=== PATIENT | male | born 1950 | race Caucasian/White ===

== ENCOUNTER 2022-06-25 10:13 | Emergency (ER) | payer MEDICARE, BC, SELFPAY ==
[2022-06-25 10:35] VITALS: BP 141/85; PULSE 80; RESP 19; TEMP 36.9; O2SAT 98; BMI 34.7
--- NOTE | 2022-06-25 11:18 | EXP.UTC ---
Discharge Plan Disposition Patient Disposition: Home, Self-Care Condition: Good Prescriptions Prescriptions: New amoxicillin-pot clavulanate 875-125 mg Tablet 1 tab PO Q12H 7 Days Qty: 14 0RF prednisone 10 mg tablet 10 mg PO BID 5 Days Qty: 10 0RF benzonatate 100 mg capsule 100 mg PO TID PRN (Reason: cough) Qty: 30 0RF Referrals Follow up/Referrals: Provider,Referral, MD [Primary Care Provider] - See instructions Activity Restrictions/Add. Instructions Additional Instructions/Restrictions: Start antibiotic today. Be sure to complete entire prescription even if feeling better Monitor temp. Tylenol every 4 hours as needed and / or ibuprofen every 6 hours as needed ( As long as your primary care physician has told you that it ok to take both. For fever/aches/pains ER if no less than 101 despite Tylenol or Motrin Humidifier/vaporizer or hot steamy shower *Tessalon Perles will not cause drowsiness but use at bedtime to help stop cough so that you may get some rest. *Start steroid today. Helps with inflammation therefore, cough and wheezing. Follow directions on the package. Reviewed side effects. Patient reports taking them before. Follow up IMMEDIATELY for new or worsening of symptoms OR no noticeable improvement over the next 48-72 hours. 911 immediately for any life threatening symptoms such as chest pain or difficulty breathing Clinical Impressions Clinical Impression: Sinusitis, Bronchitis Instructions Patient Instructions: DI for Sinusitis, Sinusitis, Acute Bronchitis Discharge ED Provider: Kelsey Page [facility] [place] HPI General Stated complaint: weakness,sore throat,cough,fatique Mode of Arrival: Ambulatory Source of Information: Patient Limitations: No Limitations Time Seen by Provider: 06/25/22 11:18 Description of Symptoms (Recalled from Triage Doc. by RN): PATIENT C/O DRY COUGH, FATIGUE, SORE THROAT AND CHILLS HEENT Symptoms (Recalled from RN notes): Yes Resp Symptoms (Recalled from RN notes): Yes Skin Symptoms (Recalled from RN notes): No MS Symptoms (Recalled from RN notes): No Functional Status (Recalled from RN notes): WNL History of Present Illness Provider Complaint: Patient states that he has been having chills, body aches, sinus congestion and pressure States that he gets bronchitis sometimes around this time every year and feels like he is getting it now States that he isnt coughing anything up but feels like it is trying to move into his chest Related Data Previous Rx's Medication Instructions Recorded amoxicillin 875 mg-potassium 1 tab PO Q12H 7 days #14 tabs 06/25/22 clavulanate 125 mg tablet benzonatate 100 mg capsule 100 mg PO TID PRN cough #30 caps 06/25/22 prednisone 10 mg tablet 10 mg PO BID 5 days #10 tabs 06/25/22 Allergies Allergy/AdvReac Type Severity Reaction Status Date / Time No Known Allergies Allergy Verified 06/25/22 10:56 Worker's Comp Is this a Worker's Comp case?: No PFSH PFSH Medical History (Updated 06/25/22 @ 11:26 by Kelsey Page APRN) Hyperlipidemia Hypertension Social History (Updated 06/25/22 @ 10:55 by Mirtha Leal RN) Smoking Status: Unknown if ever smoked alcohol intake: never current occupational status: other Travel in the last 8 weeks: None ROS Obtained: Yes All systems reviewed & no additional complaints except as documented and Yes Systems reviewed as appropriate & no additional complaints except as documented Constitutional Constitutional: Reports system reviewed and no additional complaints, except as documented and Reports as per HPI Eyes Eyes: Reports system reviewed and no additional complaints, except as documented and Reports as per HPI ENT Ears, Nose, Mouth, and Throat: Reports system reviewed and no additional complaints, except as documented, Reports as per HPI, Reports nasal congestion, Reports sinus pressure and Reports sore throat Cardiovascular Car
[2022-06-25 11:29] VITALS: BP 141/85; PULSE 80; RESP 19; TEMP 36.9; O2SAT 98
== END 2022-06-25 11:32 | disposition home or self-care (01) ==
PROVIDERS: Emergency Provider Nurse Practitioner
DX: J20.9 Acute bronchitis, unspecified (principal); J01.90 Acute sinusitis, unspecified
CPT/HCPCS: 99212; G0463

== ENCOUNTER 2024-08-27 08:43 | Emergency (ER) | payer MEDICARE, BC, SELFPAY ==
[2024-08-27 09:05] VITALS: BP 131/71; PULSE 87; RESP 21; TEMP 36.8; O2SAT 100; BMI 38.2
--- NOTE | 2024-08-27 09:33 | ED_ITS ---
Discharge Plan Disposition Patient Disposition: Home, Self-Care Condition: Good Prescriptions Prescriptions: New prednisone 10 mg tablet 10 mg PO DIRECTED 6 Days Qty: 14 0RF Rx Instructions: Take 4 tablets daily for 2 days, then take 2 tablets daily for 2 days, then take 1 tablet daily for 2 days, then stop. benzonatate 100 mg capsule 100 mg PO TIDP PRN (Reason: Cough) Qty: 30 0RF amoxicillin-pot clavulanate 875-125 mg Tablet 1 tab PO Q12H Qty: 20 0RF No Action levothyroxine 137 mcg tablet 137 mcg PO DAILY Patient Comments: TAKE 1 TABLET EVERY DAY pravastatin 80 mg tablet 80 mg PO HS Patient Comments: TAKE 1 TABLET AT BEDTIME irbesartan-hydrochlorothiazide 300-12.5 mg tablet 1 tab PO DAILY Patient Comments: TAKE 1 TABLET EVERY DAY Referrals Follow up/Referrals: Provider,Referral, MD [Primary Care Provider] - See instructions Activity Restrictions/Add. Instructions Additional Instructions/Restrictions: Drink plenty of fluids. Take tylenol or ibuprofen for pain or fever. Take the medications as directed. Follow up with your regular doctor. GO TO THE ER FOR ANY WORSENING SYMPTOMS Clinical Impressions Clinical Impression: Bronchitis Instructions Patient Instructions: DI for Acute Bronchitis, Prednisone, Benzonatate, Azithromycin Print Language Print Language: Icelandic Discharge ED Provider: Ankit Baez [facility] [place] General Stated complaint: cough, sore throat Mode of Arrival: Ambulatory Source of Information: Patient Limitations: No Limitations Time Seen by Provider: 08/27/24 09:22 Description of Symptoms (Recalled from Triage Doc. by RN): PATIENT C/O COUGH, SORE THROAT, AND SINUS PAIN/PRESSURE X 2 DAYS HEENT Symptoms (Recalled from RN notes): Yes Resp Symptoms (Recalled from RN notes): Yes Skin Symptoms (Recalled from RN notes): No MS Symptoms (Recalled from RN notes): No Functional Status (Recalled from RN notes): WNL Related Data Home Medications ?Medication ?Instructions ?Recorded ?Confirmed irbesartan 300 1 tab PO DAILY 08/27/24 08/27/24 mg-hydrochlorothiazide 12.5 mg tablet levothyroxine 137 mcg tablet 137 mcg PO DAILY 08/27/24 08/27/24 pravastatin 80 mg tablet 80 mg PO HS 08/27/24 08/27/24 Previous Rx's ?Medication ?Instructions ?Recorded amoxicillin 875 mg-potassium 1 tab PO Q12H #20 tabs 08/27/24 clavulanate 125 mg tablet benzonatate 100 mg capsule 100 mg PO TIDP PRN Cough #30 caps 08/27/24 prednisone 10 mg tablet 10 mg PO DIRECTED 6 days #14 08/27/24 tabs Allergies Allergy/AdvReac Type Severity Reaction Status Date / Time No Known Allergies Allergy Verified 06/25/22 10:56 Worker's Comp Is this a Worker's Comp case?: No [facility] Disclaimer: The information contained in this section may have been updated after the patient was seen, as this information can be updated by other users. Medical History (Updated 08/27/24 @ 09:37 by Ankit Baez APRN) Hyperlipidemia Hypertension Social History (Updated 06/25/22 @ 11:26 by Kelsey Page APRN) Smoking Status: Unknown if ever smoked alcohol intake: never current occupational status: other Travel in the last 8 weeks: None ROS Obtained: Yes All systems reviewed & no additional complaints except as documented Constitutional Constitutional: Reports poor appetite Eyes Eyes: Reports system reviewed and no additional complaints, except as documented ENT Ears, Nose, Mouth, and Throat: Reports as per HPI Cardiovascular Cardiovascular: Reports system reviewed and no additional complaints, except as documented and Denies chest pain Respiratory Respiratory: Denies shortness of breath, Denies chest congestion, Reports cough, Denies stridor and Denies wheezing Gastrointestinal Gastrointestingal: Reports system reviewed and no additional complaints, except as documented; Denies abdominal pain, diarrhea or vomiting Musculoskeletal Musculoskeletal: Reports system reviewed and no additional complaints, except as documented and Denies arthralgias Integumentary/Breasts Skin/Breast: Reports system reviewed and no additional complaints, except as documented and Denies rash Neurologic Neurologic: Denies paresthesias Allergic/Immunologic Allergic/Immunologic: Denies wheezing Physical Exam General General appearance: alert and in no apparent distress Head Head exam: atraumatic, normocephalic and normal inspection Eye Eye exam: Present normal appearance, PERRL and EOMI ENT ENT exam: Present normal exam, normal oropharynx, mucous membranes moist, TM's normal bilaterally and normal external ear exam Neck Neck exam: Present normal inspection, full ROM and trachea midline; Absent meningismus or lymphadenopathy Chest Chest inspection: Present normal inspection and symmetric chest wall rise; Absent tenderness Respiratory Respiratory exam: Present normal lung sounds bilaterally; Absent respiratory distress Cardiovascular Cardiovascular exam: Present regular rate and normal rhythm; Absent JVD Abdominal Exam Abdominal exam: Present soft and normal bowel sounds; Absent distention, tenderness or guarding Extremities Exam Extremities exam: Present normal inspection, full ROM and normal capillary refill; Absent calf tenderness Back Exam Back exam: Present normal inspection; Absent tenderness Neurological Exam Neurological exam: Present alert and oriented X3 Psychiatric Psychiatric exam: Present normal affect and normal mood Skin Skin exam: Present warm, dry, intact and normal color Lymphatic Lymphatic Findings: no adenopathy Medical Decision Making Medical Records Medical records reviewed: No I reviewed the patient's medical records. Screening: Per USPSTF and CDC recommendations, given the prevalence of disease in our region, it is our hospital?s policy to screen for HIV and viral Hepatitis for all patients aged 18 and over and those with ongoing risk factors. Mark Inquiry Pt receiving controlled substance: No Vital Signs: 08/27/24 09:05 Temperature 98.3 F Temperature Source Oral Pulse Rate [Left Brachial] 87 Respiratory Rate 21 Blood Pressure [Left Arm] 131/71 Blood Pressure Mean [Left Arm] 91 Blood Pressure Source [Left Arm] Automatic Cuff Blood Pressure Position [Left Arm] Sitting 02 Sat by Pulse Oximetry 100 Oxygen Delivery Method Room Air
[2024-08-27 09:37] VITALS: BP 131/71; PULSE 87; RESP 21; TEMP 36.8; O2SAT 100
== END 2024-08-27 09:44 | disposition home or self-care (01) ==
PROVIDERS: Emergency Provider Nurse Practitioner Family
DX: J20.9 Acute bronchitis, unspecified (principal)
CPT/HCPCS: 99213; G0381